=== PATIENT | male | born 1970 | race Caucasian/White ===

== ENCOUNTER 2022-01-18 12:16 | Inpatient (IN) ==
[2022-01-18] MEDS ORDERED: SODIUM CHLORIDE 0.9% 1,000 ML IV STA ×2 (13:05→14:22)
[2022-01-18] MEDS ORDERED: MORPHINE 2 MG/1 ML SYRINGE IV STA ×2 (13:05→14:22)
[2022-01-18] MEDS ORDERED: ONDANSETRON 4 MG/2 ML VIAL IV STA ×2 (13:05→14:22)
[2022-01-18 13:13] LABS: Basophils % 0.4 % (0.0-0.8); Eosinophils # 0.1 10*3/uL (0.0-0.87); Eosinophils % 0.9 % (0.00-10.9); Hematocrit 40.3 VOL% (42.0-52.0); Hemoglobin 13.9 GM/DL (14.0-18.0); Immature Granulocytes % 0.1 %; Immature Granulocytes Absolute 0.01 #; Lymphocytes # 1.3 10*3/uL (1.4-4.0); Lymphocytes % 15.8 % (21.2-54.2); Mean Corpuscular HGB Conc 34.5 GM/DL (32-36); Mean Corpuscular Volume 92.2 FL (87-102); Mean Platelet Volume 10.1 FL (9.6-12.0); Monocytes # 0.5 10*3/uL (0.11-0.8); Monocytes % 6.3 % (1.7-12.7); Neutrophils % 76.5 % (38.7-73.9); Platelet Count 154 T/CUMM (130-400); Red Blood Count 4.37 MC/CUMM (3.8-5.5); Red Cell Distribution Width 13.2 % (9.3-17.3); White Blood Count 8.1 T/CUMM (4-12)
[2022-01-18 13:32] LABS: Albumin 3.2 G/DL (3.4-5.0); Bilirubin,Total 0.8 MG/DL (0.20-1.00); Calcium 9.1 MG/DL (8.5-10.1); Osmolality,Calculated 276.5 MOS/KG (273-304); Potassium 3.2 MMOL/L (3.5-5.1); Total Protein 6.8 G/DL (6.4-8.2)
[2022-01-18 14:30] LABS: Hyaline Casts,Urine 1 /LPF (0-3); Mucus,Urine Occasional /LPF (Occasional); RBC,Urine 1 /HPF (0-4); Urine Appearance Clear (Clear); Urine Color Yellow (Yellow)
[2022-01-18 14:31] LABS: Bilirubin,Urine Negative (Negative); Blood, Urine Negative (Negative); Glucose,Urine (UA) Negative (Negative); Ketones,Urine Negative (Negative); Nitrite,Urine Negative (Negative); Protein,Urine Negative (Negative); Urine Specific Gravity 1.015 (1.001-1.035); Urine Urobilinogen 0.2 eU/dL (<2.0)
[2022-01-18 15:06] LABS: Barbiturates Screen,Urine Negative (Negative); Benzodiazepines Screen,Urine Negative (Negative); Cannabinoid Screen,Urine Negative (Negative); Opiate Screen,Urine Positive (Negative); Phencyclidine Screen,Urine Negative (Negative)
[2022-01-18] MEDS ORDERED: GLUCAGON 1 MG VIAL IM PRN (15:42)
[2022-01-18] MEDS ORDERED: PROMETHAZINE 25 MG/1 ML VIAL IM PRN (15:42)
[2022-01-18] MEDS ORDERED: hydrALAZINE 20 MG/1 ML VIAL IV PRN (15:45)
[2022-01-18] MEDS ORDERED: DEXTROSE 10% 250 ML BAG IV PRN (15:48)
[2022-01-18] MEDS ORDERED: SODIUM CHLORIDE 0.9% 1,000 ML IV SCH (16:00)
[2022-01-18] MEDS: SODIUM CHLOR 0.9% KCL 40 MEQ 40 MEQ/1,000 ML BAG IV SCH (16:39)
[2022-01-18] MEDS: MORPHINE 2 MG/1 ML SYRINGE IV PRN ×2 (18:43→22:23)
[2022-01-18] MEDS: carvediloL 25 MG TABLET PO SCH (18:43)
[2022-01-18] MEDS: ONDANSETRON 4 MG/2 ML VIAL IV PRN ×2 (18:43→22:26)
[2022-01-18] MEDS: GABAPENTIN 300 MG CAPSULE PO SCH (20:38)
[2022-01-18] MEDS: ENOXAPARIN 40 MG/0.4 ML SYRINGE SUBCUT SCH (20:39)
[2022-01-19] MEDS: SODIUM CHLOR 0.9% KCL 40 MEQ 40 MEQ/1,000 ML BAG IV SCH ×3 (00:46→16:15)
[2022-01-19] MEDS: ONDANSETRON 4 MG/2 ML VIAL IV PRN ×5 (02:38→21:52)
[2022-01-19] MEDS: MORPHINE 2 MG/1 ML SYRINGE IV PRN ×5 (02:39→21:53)
[2022-01-19 05:08] LABS: Basophils % 0.1 % (0.0-0.8); Eosinophils % 0.1 % (0.00-10.9); Hematocrit 40.1 VOL% (42.0-52.0); Hemoglobin 13.7 GM/DL (14.0-18.0); Immature Granulocytes % 0.4 %; Immature Granulocytes Absolute 0.04 #; Lymphocytes # 1.4 10*3/uL (1.4-4.0); Lymphocytes % 14.2 % (21.2-54.2); Mean Corpuscular HGB Conc 34.2 GM/DL (32-36); Mean Corpuscular Volume 93.5 FL (87-102); Mean Platelet Volume 10.4 FL (9.6-12.0); Monocytes # 0.6 10*3/uL (0.11-0.8); Monocytes % 5.9 % (1.7-12.7); Neutrophils % 79.3 % (38.7-73.9); Platelet Count 150 T/CUMM (130-400); Red Blood Count 4.29 MC/CUMM (3.8-5.5); Red Cell Distribution Width 13.7 % (9.3-17.3); White Blood Count 9.7 T/CUMM (4-12)
[2022-01-19 05:24] LABS: Albumin 2.8 G/DL (3.4-5.0); Bilirubin,Total 0.8 MG/DL (0.20-1.00); Calcium 8.6 MG/DL (8.5-10.1); Osmolality,Calculated 279.4 MOS/KG (273-304); Potassium 4.1 MMOL/L (3.5-5.1)
[2022-01-19] MEDS: PANTOPRAZOLE 40 MG VIAL IV SCH (05:39)
[2022-01-19] MEDS: carvediloL 25 MG TABLET PO SCH ×2 (08:15→18:30)
[2022-01-19] MEDS ORDERED: MAGNESIUM SULF RIDER 2 GM/50 ML PREMIX IV ONE (08:30)
[2022-01-19] MEDS: GABAPENTIN 300 MG CAPSULE PO SCH ×3 (09:07→21:52)
[2022-01-19] MEDS: amLODIPine 5 MG TABLET PO SCH (09:07)
[2022-01-19] MEDS: ENOXAPARIN 40 MG/0.4 ML SYRINGE SUBCUT SCH (21:52)
[2022-01-19] MEDS: ACETAMINOPHEN 325 MG TABLET PO PRN (21:55)
[2022-01-20] MEDS: SODIUM CHLOR 0.9% KCL 40 MEQ 40 MEQ/1,000 ML BAG IV SCH (00:31)
[2022-01-20] MEDS: ACETAMINOPHEN 325 MG TABLET PO PRN (03:18)
[2022-01-20] MEDS: MORPHINE 2 MG/1 ML SYRINGE IV PRN ×5 (03:19→23:03)
[2022-01-20] MEDS: ONDANSETRON 4 MG/2 ML VIAL IV PRN ×5 (03:20→23:03)
[2022-01-20 05:37] LABS: Calcium 8.9 MG/DL (8.5-10.1); Osmolality,Calculated 277.4 MOS/KG (273-304); Potassium 4.8 MMOL/L (3.5-5.1)
[2022-01-20] MEDS: PANTOPRAZOLE 40 MG VIAL IV SCH (06:07)
[2022-01-20] MEDS: carvediloL 25 MG TABLET PO SCH ×2 (08:13→17:09)
[2022-01-20] MEDS: GABAPENTIN 300 MG CAPSULE PO SCH ×3 (08:13→20:29)
[2022-01-20] MEDS: amLODIPine 5 MG TABLET PO SCH (08:13)
[2022-01-20] MEDS: SODIUM CHLORIDE 0.9% 1,000 ML IV SCH (09:48)
[2022-01-20] MEDS ORDERED: SIMETHICONE CHEW 80 MG TABLET PO PRN (10:33)
[2022-01-20] MEDS: ENOXAPARIN 40 MG/0.4 ML SYRINGE SUBCUT SCH (20:29)
[2022-01-21] MEDS: SODIUM CHLORIDE 0.9% 1,000 ML IV SCH ×2 (01:51→13:19)
[2022-01-21] MEDS: ACETAMINOPHEN 325 MG TABLET PO PRN (03:31)
[2022-01-21] MEDS: ONDANSETRON 4 MG/2 ML VIAL IV PRN ×2 (03:32→21:42)
[2022-01-21] MEDS: MORPHINE 2 MG/1 ML SYRINGE IV PRN ×5 (03:33→21:39)
[2022-01-21] MEDS: PANTOPRAZOLE 40 MG VIAL IV SCH (05:51)
[2022-01-21 06:07] LABS: Basophils % 0.2 % (0.0-0.8); Eosinophils # 0.1 10*3/uL (0.0-0.87); Eosinophils % 1.5 % (0.00-10.9); Hematocrit 29.8 VOL% (42.0-52.0); Immature Granulocytes % 0.4 %; Immature Granulocytes Absolute 0.02 #; Lymphocytes # 1.4 10*3/uL (1.4-4.0); Lymphocytes % 26.7 % (21.2-54.2); Mean Corpuscular HGB Conc 33.2 GM/DL (32-36); Mean Corpuscular Volume 96.1 FL (87-102); Mean Platelet Volume 10.7 FL (9.6-12.0); Monocytes # 0.5 10*3/uL (0.11-0.8); Monocytes % 8.8 % (1.7-12.7); Neutrophils % 62.4 % (38.7-73.9); Red Cell Distribution Width 13.8 % (9.3-17.3)
[2022-01-21 06:11] LABS: White Blood Count 5.4 T/CUMM (4-12)
[2022-01-21 06:12] LABS: Hemoglobin 9.9 GM/DL (14.0-18.0); Platelet Count 85 T/CUMM (130-400)
[2022-01-21 06:25] LABS: Albumin 2.3 G/DL (3.4-5.0); Calcium 8.5 MG/DL (8.5-10.1); Osmolality,Calculated 270.8 MOS/KG (273-304); Potassium 3.6 MMOL/L (3.5-5.1); Total Protein 5.6 G/DL (6.4-8.2)
[2022-01-21] MEDS: carvediloL 25 MG TABLET PO SCH ×2 (08:29→16:33)
[2022-01-21] MEDS: amLODIPine 5 MG TABLET PO SCH (08:29)
[2022-01-21] MEDS: GABAPENTIN 300 MG CAPSULE PO SCH ×3 (08:29→21:39)
[2022-01-21 22:17] LABS: Mucus,Urine Occasional /LPF (Occasional); RBC,Urine <1 /HPF (0-4)
[2022-01-21 22:18] LABS: Bilirubin,Urine Negative (Negative); Blood, Urine Trace mg/dL (Negative); Glucose,Urine (UA) Negative (Negative); Ketones,Urine Negative (Negative); Nitrite,Urine Negative (Negative); Protein,Urine Negative (Negative); Urine Appearance Clear (Clear); Urine Color Yellow (Yellow); Urine Urobilinogen >= 8.0 eU/dL (<2.0); Urine pH 6.5 (4.5-8.0)
[2022-01-22] MEDS: ACETAMINOPHEN 325 MG TABLET PO PRN (00:04)
[2022-01-22] MEDS: SODIUM CHLORIDE 0.9% 1,000 ML IV SCH (02:07)
[2022-01-22] MEDS: MORPHINE 2 MG/1 ML SYRINGE IV PRN ×2 (02:07→07:19)
[2022-01-22] MEDS: ONDANSETRON 4 MG/2 ML VIAL IV PRN ×2 (02:07→07:16)
[2022-01-22 05:14] LABS: Basophils % 0.4 % (0.0-0.8); Eosinophils # 0.1 10*3/uL (0.0-0.87); Eosinophils % 1.6 % (0.00-10.9); Hematocrit 30.1 VOL% (42.0-52.0); Hemoglobin 10.1 GM/DL (14.0-18.0); Immature Granulocytes % 0.2 %; Immature Granulocytes Absolute 0.01 #; Lymphocytes # 1.5 10*3/uL (1.4-4.0); Lymphocytes % 32.3 % (21.2-54.2); Mean Corpuscular HGB Conc 33.6 GM/DL (32-36); Mean Corpuscular Volume 95.9 FL (87-102); Mean Platelet Volume 11.5 FL (9.6-12.0); Monocytes # 0.5 10*3/uL (0.11-0.8); Monocytes % 10.2 % (1.7-12.7); Neutrophils % 55.3 % (38.7-73.9); Platelet Count 90 T/CUMM (130-400); Red Blood Count 3.14 MC/CUMM (3.8-5.5); Red Cell Distribution Width 13.6 % (9.3-17.3); White Blood Count 4.5 T/CUMM (4-12)
[2022-01-22] MEDS: PANTOPRAZOLE 40 MG VIAL IV SCH (05:34)
[2022-01-22 05:41] LABS: Calcium 8.5 MG/DL (8.5-10.1); Osmolality,Calculated 278.3 MOS/KG (273-304); Potassium 3.8 MMOL/L (3.5-5.1)
[2022-01-22 05:42] LABS: Eosinophils 1 % (0-10); Lymphocytes 35 % (20-55); Platelet Estimate Decreased; Total Cells Counted 100
[2022-01-22] MEDS ORDERED: LACTATED RINGERS 1,000 ML IV SCH (08:00)
[2022-01-22] MEDS ORDERED: LIDOCAINE 2% 5 ML VIAL ONE (08:20)
[2022-01-22] MEDS ORDERED: propofoL 200 MG/20 ML VIAL IV ONE (08:20)
[2022-01-22] MEDS: carvediloL 25 MG TABLET PO SCH (09:40)
[2022-01-22] MEDS: GABAPENTIN 300 MG CAPSULE PO SCH (09:41)
[2022-01-22] MEDS: amLODIPine 5 MG TABLET PO SCH (09:41)
[2022-01-22 11:46] VITALS: BP 124/62
== END 2022-01-22 12:18 | disposition home or self-care (01) | DRG 440 ==
LOC: N.ED 12:16 → N.EDINP 12:16 → N.3E 01-19 16:56 → SUATTDRO 01-20 09:01
PROVIDERS: ADMIT Internal Medicine; ATTEND Internal Medicine